=== PATIENT | female | born 1970 | race Caucasian/White ===

== ENCOUNTER 2017-04-26 06:36 | Day surgery (SDC) | payer OTHER ==
[~2017-04-26] VITALS: Ht 149.9 cm; Wt 61.2 kg
[2017-04-26 07:19] VITALS: BP 113/58
[2017-04-26 09:25] VITALS: BP 107/57
== END 2017-04-26 10:10 | disposition home or self-care (01) ==
LOC: DS 06:36 → OR 08:30 → GI 08:30 → DS 10:10
PROVIDERS: Internal Medicine Gastroenterology
PROC: 0DB68ZX Excision of Stomach, Via Natural or Artificial Opening Endoscopic, Diagnostic (ICD-10-PCS; principal; 2017-04-26 08:30)
DX: A04.8 Other specified bacterial intestinal infections (principal); B96.81 Helicobacter pylori [H. pylori] as the cause of diseases classified elsewhere; Z68.27 Body mass index [BMI] 27.0-27.9, adult
CPT/HCPCS: 43235; J1200; J1610; J2250; J2310; J3010; J3490

== ENCOUNTER 2018-10-21 10:31 | Emergency (ER) | payer OTHER ==
[~2018-10-21] VITALS: Ht 154.9 cm; Wt 58.1 kg
[2018-10-21 10:49] VITALS: Ht 154.9 cm; Wt 58.1 kg
[2018-10-21 13:31] VITALS: BP 104/59
== END 2018-10-21 13:31 | disposition home or self-care (01) ==
LOC: ED 10:31
DX: M75.01 Adhesive capsulitis of right shoulder (principal); Z88.0 Allergy status to penicillin; Z98.890 Other specified postprocedural states; Z90.49 Acquired absence of other specified parts of digestive tract
CPT/HCPCS: J1885

== ENCOUNTER → 2019-02-13 | Outpatient (CLI) | payer OTHER ==
[2019-02-13 08:04] LABS: BASOPHIL % 0.8 % (0-2); PLATELET COUNT 393 x10^3mcL (130-400); RED CELL DISTRIBUTION WIDTH 13.5 % (11.5-14.5)
[2019-02-13 08:45] LABS: ALBUMIN 3.9 g/dL (3.4-5.0); ALKALINE PHOSPHATASE 106 U/L (46-116); ALT/SGPT 37 U/L (14-59); AST/SGOT 22 U/L (15-37); BILIRUBIN TOTAL 0.4 mg/dL (0.20-1.00); CARBON DIOXIDE 28.8 mmol/L (21-32); CHLORIDE SERUM 102 mmol/L (98-107); CHOLESTEROL 165 mg/dL (<200); CHOLESTEROL/HDL RATIO 4.5; CREATININE SERUM 0.7 mg/dL (0.6-1.0); GFR1 > 60 mL/min; GLUCOSE SERUM 87 mg/dL (74-106); HDL CHOLESTEROL 37 mg/dL (40-60); POTASSIUM SERUM 4.3 mmol/L (3.5-5.1); SODIUM SERUM 138 mmol/L (136-145); TRIGLYCERIDES 92 mg/dL (<150)
[2019-02-13 08:49] LABS: TOTAL PROTEIN, SERUM 8.8 g/dL (6.4-8.2)
[2019-02-13 11:23] LABS: UA SPECIFIC GRAVITY <=1.005 (1.005-1.035); microscopic required? YES; urine erythrocyte 2+ (NEGATIVE)
== END | disposition home or self-care (01) ==
LOC: LB 07:19
DX: R51 Headache (principal); Z13.21 Encounter for screening for nutritional disorder; Z83.3 Family history of diabetes mellitus; Z13.0 Encounter for screening for diseases of the blood and blood-forming organs and certain disorders involving the immune mechanism; Z13.220 Encounter for screening for lipoid disorders
CPT/HCPCS: 82306; 82652

== ENCOUNTER 2019-09-14 08:10 | Inpatient (IN) | payer OTHER ==
[~2019-09-14] VITALS: Ht 152.4 cm; Wt 58.1 kg
[2019-09-14 08:21] VITALS: Ht 152.4 cm; Wt 58.1 kg
[2019-09-14 09:01] LABS: CALCIUM 9.1 mg/dL (8.5-10.1); CARBON DIOXIDE 23.9 mmol/L (21-32); CHLORIDE SERUM 100 mmol/L (98-107); CREATININE SERUM 0.7 mg/dL (0.6-1.0); GFR1 > 60 mL/min; GLUCOSE SERUM 113 mg/dL (74-106); POTASSIUM SERUM 4.1 mmol/L (3.5-5.1); SODIUM SERUM 136 mmol/L (136-145)
[2019-09-14 09:02] LABS: PLATELET COUNT 439 x10^3mcL (130-400); RED CELL DISTRIBUTION WIDTH 14.7 % (11.5-14.5)
[2019-09-14 09:07] LABS: ALKALINE PHOSPHATASE 106 U/L (46-116); ALT/SGPT 26 U/L (14-59); AST/SGOT 17 U/L (15-37); BILIRUBIN TOTAL 1.13 mg/dL (0.20-1.00); LIPASE 94 IU/L (73-393); TOTAL PROTEIN, SERUM 9.1 g/dL (6.4-8.2)
[2019-09-14 09:33] LABS: BAND NEUTROPHIL 2 % (0-10); BASOPHIL 0 % (0-2); MONOCYTE 5 % (0-7); SEGMENTED NEUTROPHILS 88 % (37-75)
[2019-09-14 09:36] LABS: rbc morphology (normal/abnorm) ABNORMAL (NORMAL)
[2019-09-14 11:28] LABS: PHOSPHOROUS 2.2 mg/dL (2.5-4.9)
[2019-09-14 11:35] LABS: T3 TOTAL 1.53 ng/mL
[2019-09-14 11:52] LABS: FREE T4 1.15 ng/dL (0.76-1.46); FREE THYROXINE INDEX 3.6 ug/dL (1.4-4.5); T4(THYROXINE) 11.3 ug/dL (4.7-13.3)
[2019-09-14 15:04] VITALS: BP 108/60
[2019-09-14 16:04] VITALS: BP 108/52
[2019-09-14 20:42] VITALS: BP 111/53
[2019-09-15 05:40] VITALS: BP 110/51
[2019-09-15 06:49] LABS: BASOPHIL % 0.3 % (0-2); PLATELET COUNT 360 x10^3mcL (130-400)
[2019-09-15 06:56] LABS: CALCIUM 7.8 mg/dL (8.5-10.1); CARBON DIOXIDE 24.3 mmol/L (21-32); CHLORIDE SERUM 102 mmol/L (98-107); CREATININE SERUM 0.6 mg/dL (0.6-1.0); GFR1 > 60 mL/min; GLUCOSE SERUM 104 mg/dL (74-106); POTASSIUM SERUM 3.9 mmol/L (3.5-5.1); SODIUM SERUM 137 mmol/L (136-145)
[2019-09-15 09:07] VITALS: BP 101/54
[2019-09-15 16:55] VITALS: BP 111/62
[2019-09-15 19:30] VITALS: BP 113/77
[2019-09-16 06:19] VITALS: BP 115/62
[2019-09-16 06:32] LABS: BASOPHIL % 0.8 % (0-2); PLATELET COUNT 338 x10^3mcL (130-400); RED CELL DISTRIBUTION WIDTH 14.5 % (11.5-14.5)
[2019-09-16 07:01] LABS: CALCIUM 7.8 mg/dL (8.5-10.1); CARBON DIOXIDE 27.7 mmol/L (21-32); CHLORIDE SERUM 106 mmol/L (98-107); CREATININE SERUM 0.7 mg/dL (0.6-1.0); GFR1 > 60 mL/min; GLUCOSE SERUM 82 mg/dL (74-106); POTASSIUM SERUM 3.7 mmol/L (3.5-5.1); SODIUM SERUM 140 mmol/L (136-145)
[2019-09-16 09:04] VITALS: BP 115/60
[2019-09-16] MEDS ORDERED: FLA500 PO (10:06)
[2019-09-16] MEDS ORDERED: MOT600 PO (10:06)
[2019-09-16 11:30] VITALS: BP 115/60
[2019-09-16] MEDS ORDERED: ZOF4 PO (13:09)
== END 2019-09-16 13:43 | disposition home or self-care (01) | DRG 343 ==
LOC: ED 08:10 → MU 10:21
PROVIDERS: Emergency Medicine; Surgery; ADMIT Internal Medicine
PROC: 0DTJ4ZZ Resection of Appendix, Percutaneous Endoscopic Approach (ICD-10-PCS; principal; 2019-09-14 11:30)
DX: K37 Unspecified appendicitis (principal); Z90.49 Acquired absence of other specified parts of digestive tract; Z88.0 Allergy status to penicillin
CPT/HCPCS: 84439; G0378; J0744; J1170; J1956; J2270; J2405; J3010; J3490; J7030

== ENCOUNTER → 2020-06-15 | Outpatient (CLI) | payer OTHER ==
[~2020-06-15] MED LIST: FLA500 PO; MOT600 PO; ZOF4 PO
[2020-06-15 10:00] LABS: PLATELET COUNT 401 x10^3mcL (130-400); RED CELL DISTRIBUTION WIDTH 15.3 % (11.5-14.5)
[2020-06-15 10:23] LABS: ALBUMIN 3.6 g/dL (3.4-5.0); ALKALINE PHOSPHATASE 106 U/L (46-116); ALT/SGPT 58 U/L (14-59); AST/SGOT 31 U/L (15-37); BILIRUBIN TOTAL 0.6 mg/dL (0.20-1.00); CALCIUM 8.5 mg/dL (8.5-10.1); CARBON DIOXIDE 32.1 mmol/L (21-32); CHLORIDE SERUM 105 mmol/L (98-107); CHOLESTEROL 164 mg/dL (<200); CHOLESTEROL/HDL RATIO 6.3; CREATININE SERUM 0.7 mg/dL (0.6-1.0); FREE T4 1.05 ng/dL (0.76-1.46); GFR1 > 60 mL/min; GLUCOSE SERUM 93 mg/dL (74-106); HDL CHOLESTEROL 26 mg/dL (40-60); POTASSIUM SERUM 4.5 mmol/L (3.5-5.1); SODIUM SERUM 139 mmol/L (136-145); TOTAL PROTEIN, SERUM 8.1 g/dL (6.4-8.2); TRIGLYCERIDES 140 mg/dL (<150)
[2020-06-15 10:24] LABS: microscopic required? YES; urine erythrocyte 3+ (NEGATIVE)
== END | disposition home or self-care (01) ==
LOC: LB 09:18
DX: Z13.228 Encounter for screening for other metabolic disorders (principal); Z13.21 Encounter for screening for nutritional disorder; Z13.1 Encounter for screening for diabetes mellitus; Z13.0 Encounter for screening for diseases of the blood and blood-forming organs and certain disorders involving the immune mechanism; Z13.220 Encounter for screening for lipoid disorders
CPT/HCPCS: 82652; 84439

== ENCOUNTER → 2020-06-22 | Outpatient (CLI) | payer OTHER | END | disposition home or self-care (01) | LOC: MA 09:21 | PROC: BH02ZZZ Plain Radiography of Bilateral Breasts (ICD-10-PCS; principal; 2020-06-22) | PROC: BU4CZZZ Ultrasonography of Uterus and Ovaries (ICD-10-PCS; 2020-06-22) | PROC: BW4GZZZ Ultrasonography of Pelvic Region (ICD-10-PCS; 2020-06-22) | DX: R10.31 Right lower quadrant pain (principal); Z12.31 Encounter for screening mammogram for malignant neoplasm of breast | CPT/HCPCS: 77067 ==

== ENCOUNTER → 2020-07-02 | Outpatient (CLI) | payer OTHER | END | disposition home or self-care (01) | LOC: US 09:00 | PROC: BH42ZZZ Ultrasonography of Bilateral Breasts (ICD-10-PCS; principal; 2020-07-02) | DX: N63.10 Unspecified lump in the right breast, unspecified quadrant (principal) | CPT/HCPCS: 76642 ==